=== PATIENT | male | born 1970 | race Caucasian/White ===

== ENCOUNTER 2017-11-05 06:01 | Inpatient (IN) | payer BC, OTHER ==
[2017-10-14 08:11] VITALS: BMI 25.0
--- NOTE | 2017-10-14 09:32 | PAT Medication Instructions ---
Service Date Oct 14, 2017. Current Home Medication List Aspirin (Aspirin Ec), 81 MG PO HS Atorvastatin (Lipitor), 20 MG PO HS Naproxen (Aleve), 220 MG PO DAILY PRN for Pain Terazosin Hcl (Hytrin), 1 MG PO HS Medication Instructions For Your Scheduled Surgery - As per surgeon: Naproxen (Aleve), 220 MG PO DAILY PRN for Pain - Take the following medications as scheduled the night before surgery: Atorvastatin (Lipitor), 20 MG PO HS Terazosin Hcl (Hytrin), 1 MG PO HS Aspirin (Aspirin Ec), 81 MG PO HS *NOTHING TO EAT OR DRINK AFTER MIDNIGHT* If you have any questions please call us at [phone] or [phone] or [phone]
--- NOTE | 2017-10-14 09:59 | DIAGNOSTIC IMAGING REPORT ---
CHEST 2 VIEWS ROUTINE CLINICAL HISTORY: Preoperative evaluation. COMPARISON STUDY: No previous studies for comparison. FINDINGS: Lung volumes are normal. Lungs are clear. No pneumothorax or pleural effusion is noted. There is no evidence for pulmonary edema. Cardiac size is normal. Mediastinal contours are normal. IMPRESSION: No acute cardiopulmonary findings. Electronically signed by: Kiran Motley M.D. 10/14/2017 9:58 AM Dictated Date/Time: 10/14/2017 9:57 AM
[2017-10-14 10:22] LABS: BASO % 0.4 %; BASO ABS # 0.02 K/uL (0-0.2); EOS ABS # 0.05 K/uL (0-0.5); HEMATOCRIT 43.4 % (42-52); HEMOGLOBIN 14.9 g/dL (14.0-18.0); IG# 0.01 K/uL (0.00-0.02); LYMPH % 28.7 %; LYMPH ABS # 1.44 K/uL (1.2-3.4); MEAN CELL VOLUME 89.9 fL (80-100); MEAN CORPUSCULAR HEMOGLOBIN 30.8 pg (25-34); MEAN CORPUSCULAR HGB CONC 34.3 g/dl (32-36); MEAN PLATELET VOLUME 9.3 fL (7.4-10.4); MONO % 7.6 %; MONO ABS # 0.38 K/uL (0.11-0.59); NEUT % 62.1 %; NEUT ABS # 3.12 K/uL (1.4-6.5); PLATELET COUNT 239 K/uL (130-400); RED CELL DISTRIBUTION WIDTH CV 12.6 % (11.5-14.5); RED CELL DISTRIBUTION WIDTH SD 41.5 fL (36.4-46.3); WHITE BLOOD COUNT 5.02 K/uL (4.8-10.8)
[2017-10-14 10:47] LABS: CREATININE 0.96 mg/dl (0.60-1.40); POTASSIUM 4.5 mmol/L (3.5-5.1)
[2017-11-05] VITALS (9 sets, daily range): BP systolic 118–144; BP diastolic 69–88; PULSE 54–79; TEMP 36.3–36.7; O2SAT 94–100; Ht 185.4 cm; Wt 88.6 kg
[~2017-11-05] VITALS: Ht 185.4 cm; Wt 88.6 kg
[~2017-11-05 06:01] MED LIST: ACETAMINOPHEN 500 MG TAB PO SCH; ASPI81TA28 PO; ATOR-22 PO; CEFAZOLIN 2000MG IV PUSH 15 ML IV SCH; CeleBREX 200 MG CAP PO SCH; GABAPENTIN 900 MG PO SCH; LACTATED RINGER'S 1000ML 1,000 ML IV SCH; NAPR1TAB9 PO; TERA1CAP PO
[2017-11-05] MEDS ORDERED: FENTANYL CITRATE INJ 50 MCG/1 ML 2 ML VIAL ONE ×3 (06:37→08:19)
[2017-11-05] MEDS ORDERED: MIDAZOLAM HCL 1 MG/ML 2ML VIAL ONE (06:37)
[2017-11-05] MEDS ORDERED: BUPIVACAINE 0.5 % 5 MG/1 ML PF 10ML VIAL ONE (07:08)
[2017-11-05] MEDS ORDERED: BACITRACIN 50000 UNIT VIAL ONE (07:08)
[2017-11-05] MEDS ORDERED: BUPIVACAINE/EPINEPHRINE 0.5% MPF 1:200,000 30 ML VIAL ONE (07:08)
[2017-11-05] MEDS ORDERED: SODIUM CHLORIDE 0.9% PF 50 ML VIAL ONE (07:08)
[2017-11-05] MEDS ORDERED: BUPIVACAINE LIPOSOME 1/3% 266 MG/20 ML VIAL ONE (07:08)
[2017-11-05] MEDS ORDERED: GELATIN SPONGE SZ 100 ONE (07:09)
[2017-11-05] MEDS ORDERED: THROMBIN FOR SOLN 20000 UNIT KIT ONE (07:09)
[2017-11-05] MEDS ORDERED: ATROPINE SULFATE 0.1 MG/ML 5ML SYR IV PRN (07:15)
[2017-11-05] MEDS ORDERED: FENTANYL CITRATE INJ 50 MCG/1 ML 2 ML VIAL IV PRN (07:15)
[2017-11-05] MEDS ORDERED: MoRPHine SULFATE 10 MG/ML CARP/VIAL IV PRN (07:15)
[2017-11-05] MEDS ORDERED: ONDANSETRON INJ 2 MG/ML 2 ML VIAL IV PRN ×2 (07:15→09:45)
[2017-11-05] MEDS ORDERED: EpHEDrine SULFATE INJ 50 MG/ML AMP IV PRN (07:15)
--- NOTE | 2017-11-05 07:33 | History & Physical Bridge Note ---
H&P Re-Evaluation Bridge Note: I have examined the patient, reviewed the History & Physical and in the interval since the performance of the History & Physical I have noted the following changes of clinical significance: No changes noted
--- NOTE | 2017-11-05 07:35 | History and Physical ---
History & Physical Date Nov 05, 2017. Chief Complaint Back and leg pain History of Present Illness The patient is a 47 year old male with complaints of back and leg pain Additional History Hepatic Disease: No Endocrine Disorder: No Kidney Disease: No Hypertension: Yes Heart Disease: No Bleeding Tendencies: No Infectious Diseases: No Allergies Coded Allergies: No Known Allergies (Unverified , 11/05/17) Home Medications Scheduled Aspirin (Aspirin Ec), 81 MG PO HS Atorvastatin (Lipitor), 20 MG PO HS Terazosin Hcl (Hytrin), 1 MG PO HS Scheduled PRN Naproxen (Aleve), 220 MG PO DAILY PRN for Pain Physical Examination Skin: warm/dry, no rash Eyes: normal inspection, EOMI, sclerae normal ENT: normal ENT inspection, pharynx normal Head: normocephalic, atraumatic Neck: supple, no adenopathy, trachea midline Respiratory/Chest: lungs clear, normal breath sounds, no respiratory distress Cardiovascular: regular rate, rhythm, no edema, no murmur Abdomen / GI: normal bowel sounds, non tender Back: normal inspection Extremities: normal inspection, normal range of motion Neurologic/Psych: no motor/sensory deficits, alert, normal reflexes, oriented x 3 Diagnosis Lumbar spinal stenosis with spondylolisthesis and neurogenic claudication Plan of Treatment L4-5 decompression and fusion
[2017-11-05] MEDS ORDERED: HYDROmorphone INJ 2 MG/ML SYR/VIAL ONE ×2 (08:24→09:33)
[2017-11-05] MEDS ORDERED: LIDOCAINE HCL 2% 2 ML VIAL (20MG/ML) ONE (08:42)
[2017-11-05] MEDS ORDERED: LARYING-O-JET KIT (LTA) ONE (08:42)
[2017-11-05] MEDS ORDERED: DEXAMETHASONE SOD INJ 4 MG/ML VIAL ONE (08:42)
[2017-11-05] MEDS ORDERED: PROPOFOL IV EMULSION 10 MG/ML 20 ML VIAL ONE (08:42)
[2017-11-05] MEDS ORDERED: ONDANSETRON INJ 2 MG/ML 2 ML VIAL ONE ×2 (08:42→09:34)
[2017-11-05] MEDS ORDERED: FLOSEAL HEMOSTATIC MATRIX 10ML TOP ONE (09:15)
--- NOTE | 2017-11-05 09:33 | [facility] Operative Report ---
Operative Report Operative Date Nov 05, 2017. Pre-Operative Diagnosis Lumbar spinal stenosis with spondylolisthesis and neurogenic claudication Post-Operative Diagnosis Lumbar spinal stenosis with spondylolisthesis and neurogenic claudication Procedure(s) Performed 1. Lumbar decompression medial facetectomies foraminotomies L3-4 L4-5. #2 posterior spinal fusion L4-5. #3 placement posterior instrumentation L4-5. #4 interbody fusion L4-5. #5 placement of titanium 12 x 26 mm cage L4-5. #6 basement of local autograft in the posterior lateral gutters per #7 placement InFUSE collagen sponge, Nast graft the posterior gutters and ostial amp in the interbody space. Surgeon Dr. Kath Ontiveros Supervisor [employer] Surgeon(s) Mone Latham PA-C Estimated Blood Loss 200mL Findings Spinal listhesis with severe lateral recess and foraminal stenosis Specimens none per surgeon Anesthesia Type General Description of Procedure Patient was met with preoperatively case discussed all questions addressed. After informed consent obtained patient was taken to the operative suite underwent intubation placed in prone position on the Александр table on top of the Joe frame. All bony prominences were well-padded eyes inspected to ensure no external pressure placed upon. This point the lumbar spine was prepped and draped in the normal sterile fashion. Sharp dissection with the assistance Bovie cautery was performed down to and exposing the lamina transposes L4 and L5 bilaterally. From caudocephalad fashion complete laminectomy of L4 partial laminectomy of L3 is performed addressing severe lateral recess and foraminal disease. Obvious pars defect was noted. After complete decompression pedicle screws were placed in L4 and L5 bilaterally with the assistance of fluoroscopy and the purposes mahesh placed. Through a trans- foraminal approach and right complete discectomy was performed endplates created to subcortical bleeding bone and a 12 x 26 mm titanium cage filled with ostial amp bone graft tapped in position. Rods then compressed locked in final position bilaterally. The transverse processes of L4 and L5 burred to subcortical bleeding bone. Infuse collagen sponge master graft local autograft placed in the posterior gutters. Proximally 100 cc of Exparel injected into the musculature. Inserted. Incision was then closed with 1 Vicryl fascia 2-0 Vicryl substantially 4 Monocryl for fast closure Steri-Strips sterile dressings placed. Patient will continue PACU stable condition. Please note Yasemin Latham was present throughout the entire procedure involved in patient positioning complex portions of the surgery and final skin closure. I attest to the content of the Intraoperative Record and any orders documented therein. Any exceptions are noted below.
[2017-11-05] MEDS ORDERED: KETOROLAC TROMETHAMINE 30 MG/ML VIAL ONE (09:34)
[2017-11-05] MEDS ORDERED: GLYCOPYRROLATE INJ 0.2 MG/ML VIAL ONE (09:34)
[2017-11-05] MEDS ORDERED: EpHEDrine SULFATE 50MG/5ML SYR ONE (09:34)
[2017-11-05] MEDS ORDERED: NEOSTIGMINE METHYLSULFATE 1 MG/ML 10ML VIAL ONE (09:34)
[2017-11-05] MEDS ORDERED: LORAZEPAM 0.5 MG TAB PO PRN (09:45)
[2017-11-05] MEDS ORDERED: DO NOT ADMINISTER FLU VACCINE PRN (09:45)
[2017-11-05] MEDS ORDERED: ACETAMINOPHEN IV 100 ML IV PRN (09:45)
[2017-11-05] MEDS ORDERED: DO NOT ADMINISTER PNEUMOCOCCAL VACCINE PRN (09:45)
[2017-11-05] MEDS ORDERED: LORAZEPAM INJ 0.5 MG in SYRINGE 0 ML IV PRN (09:45)
[2017-11-05] MEDS ORDERED: BISACODYL 10 MG SUPP PR PRN (09:45)
[2017-11-05] MEDS ORDERED: CEFAZOLIN IV 2,000 MG in DEXTROSE 5% 50ML 50 ML IV SCH (09:45)
[2017-11-05] MEDS ORDERED: ACETAMINOPHEN 500 MG TAB PO PRN (09:45)
[2017-11-05] MEDS ORDERED: ALUMINUM/MAGNESIUM SUSP 30 ML UDC PO PRN (09:45)
[2017-11-05] MEDS ORDERED: NALOXONE HCL 0.4 MG/1 ML VIAL/CARP IV PRN (09:45)
[2017-11-05] MEDS ORDERED: METOCLOPRAMIDE HCL INJ 5 MG/ML 2 ML VIAL IV PRN (09:45)
[2017-11-05] MEDS ORDERED: PROMETHAZINE HCL INJ 12.5 MG in SODIUM CHLORIDE 0.9% 50ML 50 ML IV PRN (09:45)
[2017-11-05] MEDS ORDERED: SOD PHOSPHATE/SOD BIPHOSPHATE ENEMA 132 ML BTL PR PRN (09:45)
[2017-11-05] MEDS ORDERED: hydrOXYzine HCL 25 MG TAB PO PRN (09:45)
[2017-11-05] MEDS ORDERED: MAGNESIUM HYDROXIDE SUSP 30 ML UDC PO PRN (09:45)
[2017-11-05] MEDS ORDERED: FAMOTIDINE 20 MG TAB PO PRN (09:45)
[2017-11-05] MEDS ORDERED: KETOROLAC TROMETHAMINE 30 MG/ML VIAL IV PRN (09:45)
--- NOTE | 2017-11-05 09:45 | DIAGNOSTIC IMAGING REPORT ---
LUMBAR SPINE, INTRAOPERATIVE FLUOROSCOPY HISTORY: L4-L5 decompression and fusion. FLUOROSCOPY TIME: 14 seconds. FINDINGS: Intraoperative fluoroscopy was provided for the lumbar spine. 2 fluoroscopic spot images were obtained. Posterior decompression and fusion at L4-5 with pedicle screws and rods. A disc spacer is present. The hardware is intact. IMPRESSION: Fluoroscopy provided for a L4-L5 posterior decompression and fusion. Electronically signed by: Brennan Garces M.D. 11/05/2017 9:43 AM Dictated Date/Time: 11/05/2017 9:43 AM
--- NOTE | 2017-11-05 10:24 | Anesthesiology Progress Note ---
Anesthesia Post Op Note Date & Time Nov 05, 2017 at 10:24 Vital Signs Pain Intensity: 0 Vital Signs Past 12 Hours Date Time Temp Pulse Resp B/P (MAP) Pulse Ox O2 Delivery O2 Flow Rate FiO2 11/05/17 10:20 52 16 134/80 100 Nasal Cannula 4 11/05/17 10:10 57 16 133/87 100 Nasal Cannula 4 11/05/17 10:00 53 16 132/78 100 Oxymask 10 11/05/17 09:51 36.2 61 16 124/70 100 Oxymask 10 11/05/17 06:41 36.5 63 18 132/88 99 Room Air Notes Mental Status: alert / awake / arousable, participated in evaluation Pt Amnestic to Procedure: Yes Nausea / Vomiting: adequately controlled Pain: adequately controlled Airway Patency, RR, SpO2: stable & adequate BP & HR: stable & adequate Hydration State: stable & adequate Anesthetic Complications: no major complications apparent
[2017-11-05] MEDS ORDERED: OXYCODONE HCL IR 5 MG TAB (IMMEDIATE RELEASE) PO PRN (10:45)
[2017-11-05] MEDS ORDERED: HYDROmorphone INJ 0.5 MG/0.5 ML SYR IV PRN (10:45)
[2017-11-05] MEDS ORDERED: ROCURONIUM BROMIDE 10 MG/ML 5 ML VIAL ONE (11:38)
[2017-11-05] MEDS: LACTATED RINGER'S 1000ML 1,000 ML IV SCH ×3 (15:05→23:29)
[2017-11-05] MEDS: CEFAZOLIN IV 2,000 MG in SYRINGE 0 ML IV SCH ×2 (15:44→23:29)
[2017-11-05] MEDS: ATORVASTATIN 20 MG TAB PO SCH (20:52)
[2017-11-05] MEDS: ASPIRIN 81 MG ECTAB PO SCH (20:53)
[2017-11-05] MEDS: DOCUSATE SODIUM/SENNA 50/8.6MG TAB PO SCH (20:53)
[2017-11-06 02:53] VITALS: BP 134/74; PULSE 70; TEMP 36.4; O2SAT 98
[2017-11-06] MEDS ORDERED: OXYCODONE HCL IR 5 MG TAB (IMMEDIATE RELEASE) PO PRN (06:00)
[2017-11-06] MEDS ORDERED: HYDROmorphone INJ 0.5 MG/0.5 ML SYR IV PRN (06:00)
[2017-11-06] MEDS: LACTATED RINGER'S 1000ML 1,000 ML IV SCH (06:04)
[2017-11-06 07:56] VITALS: BP 110/65; PULSE 76; TEMP 36.4; O2SAT 99
[2017-11-06 07:57] LABS: BASO % 0.1 %; BASO ABS # 0.01 K/uL (0-0.2); EOS % 0.1 %; EOS ABS # 0.01 K/uL (0-0.5); HEMATOCRIT 36.9 % (42-52); HEMOGLOBIN 12.3 g/dL (14.0-18.0); IG# 0.04 K/uL (0.00-0.02); LYMPH % 10.1 %; MEAN CELL VOLUME 92.3 fL (80-100); MEAN CORPUSCULAR HEMOGLOBIN 30.8 pg (25-34); MEAN CORPUSCULAR HGB CONC 33.3 g/dl (32-36); MEAN PLATELET VOLUME 9.8 fL (7.4-10.4); MONO % 7.4 %; MONO ABS # 0.96 K/uL (0.11-0.59); PLATELET COUNT 191 K/uL (130-400); RED CELL DISTRIBUTION WIDTH SD 44.1 fL (36.4-46.3); WHITE BLOOD COUNT 12.92 K/uL (4.8-10.8)
[2017-11-06] MEDS ORDERED: RXC5 PO (08:13)
--- NOTE | 2017-11-06 08:14 | Discharge Instructions ---
Discharge Instructions Date of Service Nov 06, 2017. Admission Reason for Admission: Lumbar Spinal Stenosis Discharge Discharge Diagnosis / Problem: lumbar stenosis Discharge Goals Goal(s): Improve function Activity Recommendations Activity Limitations: per Instructions/Follow-up section . Instructions / Follow-Up Instructions / Follow-Up ACTIVITY RECOMMENDATIONS: SELF CARE INSTRUCTIONS AFTER THORACIC/LUMBAR FUSIONS 1. You may walk to your tolerance. It is good exercise for your legs and back. Expect some back and intermittent leg aches and pains. 2. You may perform "counter-top" level activities (make a sandwich, heron with a project, etc.). 3. No bending or lifting of more than 10 pounds or back twisting of any nature (roll like a log when turning in bed). 4. You may ride in a car for 20-30 minutes at a time. No driving until after your first visit with your doctor. 5. Frequent changes of position and restricting sitting to 30 minutes at a time will help limit the amount of back spasms and stiffness you may experience. 6. You may discontinue the use of ambulatory aids (cane, crutches, etc.) once your strength and confidence allow. 7. You may senior market intelligence consultant the shower and let water strike your incision when you arrive home at least once daily. Do not take a tub bath, sit in a hot tub or go into a swimming pool until after your first recheck in the office. SPECIAL CARE INSTRUCTIONS: VERY IMPORTANT TO READ AND REVIEW A. Your surgical incision has been closed with a cosmetic suture under the skin that will dissolve in about 6 weeks. In 14 days, you can use a pair of clean scissors and cut the suture that is left outside of the skin at the ends of your incision. 1. The small skin tapes can be removed 7 days after surgery if they have not fallen off by that point. 2. You may keep the wound open to air as much as possible to promote healing after post-op day number 5 unless told otherwise by your doctor. 3. If you think the wound looks like it is becoming infected (redness or worsening drainage) and/or you are experiencing fever, chill or worsening back pain and muscle spasms, contact the office so that we may evaluate you as soon as possible. B. Complications are uncommon, but please contact us if you have any signs or symptoms of: 1. wound infection (fever higher than 102.5 degrees F, redness, separation of wound, drainage, or increasing pain from the incision) 2. blood clots in legs (pain, swelling, redness and warmth in legs) 3. urinary tract infection (fever higher than 102.5 degrees F, burning upon urination or increased frequency of urination) 4. nerve problems (inability to walk on your toes or heels, numbness, loss of bowel or bladder control) 5. any other symptoms that concern you C. Please call the office at if you have any concerns or questions about your operation or recovery. D. No smoking! Smoking drastically decreases the chance of a solid fusion. E. Do not take any anti-inflammatory medications (Indocin, Advil, Motrin, Aspirin, Naprosyn, etc.) as these may inhibit the chance of a solid fusion. Tylenol is okay to take for pain. MANAGING PAIN AFTER SPINAL SURGERY 1. Narcotic medication is intended for short-term use and will be provided for surgical pain. Surgical pain usually lasts for a period of 4-6 weeks. Narcotic medication includes Percocet, Vicodin, Darvocet, Tylenol #3 or Lortab. 2. Longer-term pain is more appropriately treated with non-narcotic medication such as Tylenol ES. 3. Muscle spasm is not appropriately treated with narcotics. Muscle relaxers such as Soma, Flexeril or Skelaxin can be used along with Tylenol ES. 4. Remember that we all live with some "aches and pains". This is not unusual or uncommon after an injury or as we get older. a. Back pain is expected and may include muscle spasms for 4 to 6 weeks after surgery. The pain should gradually improve. If the pain worsens for no apparent reason, please contact the office. b. Intermittent leg pain may also be experienced and should not be concerned about unless it worsens for no apparent reason. If so, please contact the office. 5. We will provide appropriate medication within the normal guidelines of their prescribed use. We will also be very cautious and aware of potential abuse and extended duration of patients' medication needs. a. Pain medications are for your comfort and to assist with sleep and rest so that the tissue can heal. They are not provided in order to return to normal activity and should not be used through the day. To do so or worsening pain at night can result from ongoing tissue damage and development of tolerance to the prescribed medicine. 6. Please allow 2-3 days to process refills. Prescriptions will not be mailed but must be picked up at the office. FOLLOW UP VISIT: Keep your scheduled follow-up appointment. Any questions, please call the office at . Current Hospital Diet Patient's current hospital diet: Regular Diet Discharge Diet Recommended Diet: Regular Diet Procedures Procedures Performed: 1. Lumbar decompression medial facetectomies foraminotomies L3-4 L4-5. #2 posterior spinal fusion L4-5. #3 placement posterior instrumentation L4-5. #4 interbody fusion L4-5. #5 placement of titanium 12 x 26 mm cage L4-5. #6 basement of local autograft in the posterior lateral gutters per #7 placement InFUSE collagen sponge, Nast graft the posterior gutters and ostial amp in the interbody space. Pending Studies Studies pending at discharge: no Medical Emergencies . Who to Call and When: Medical Emergencies: If at any time you feel your situation is an emergency, please call 911 immediately. . Non-Emergent Contact Non-Emergency issues call your: Primary Care Provider . "Provider Documentation" section prepared by Emery Ontiveros. .
--- NOTE | 2017-11-06 08:19 | Progress Note ---
Progress Note Date of Service Nov 06, 2017. Progress Note Patient's back pain is controlled leg symptoms improved vital signs stable. On exam he is ambulating the halls is good strength testing appears comfortable. Assessment status post lumbar depression fusion. Plan at this time we will monitor his GENTRY output anticipate possible home tomorrow.
[2017-11-06 08:31] LABS: CALCIUM 8.3 mg/dl (8.5-10.1); CREATININE 0.86 mg/dl (0.60-1.40)
[2017-11-06] MEDS ORDERED: NURSING VERBAL MED ORDER ONE (09:15)
[2017-11-06 10:40] VITALS: BP 127/73; PULSE 70; TEMP 36.3; O2SAT 98
[2017-11-06 15:31] VITALS: BP 129/82; PULSE 63; TEMP 36.6; O2SAT 99
[2017-11-06 21:52] VITALS: BP 139/75
[2017-11-06] MEDS: ASPIRIN 81 MG ECTAB PO SCH (21:53)
[2017-11-06] MEDS: ATORVASTATIN 20 MG TAB PO SCH (21:53)
[2017-11-06] MEDS: DOCUSATE SODIUM/SENNA 50/8.6MG TAB PO SCH (21:53)
[2017-11-06 23:23] VITALS: BP 122/73; PULSE 82; TEMP 36.9; O2SAT 98
[2017-11-07] MEDS: POLYETHYLENE (MIRALAX) 17 GM PACK PO SCH ×2 (05:51→10:39)
[2017-11-07 05:59] VITALS: BP 112/73; PULSE 104; TEMP 36.5; O2SAT 96
[2017-11-07 07:11] LABS: EOS % 0.3 %; EOS ABS # 0.03 K/uL (0-0.5); HEMATOCRIT 38.5 % (42-52); HEMOGLOBIN 12.6 g/dL (14.0-18.0); IG# 0.03 K/uL (0.00-0.02); LYMPH % 9.4 %; MEAN CELL VOLUME 92.8 fL (80-100); MEAN CORPUSCULAR HEMOGLOBIN 30.4 pg (25-34); MEAN CORPUSCULAR HGB CONC 32.7 g/dl (32-36); MEAN PLATELET VOLUME 9.5 fL (7.4-10.4); MONO % 8.4 %; NEUT % 81.6 %; NEUT ABS # 7.79 K/uL (1.4-6.5); PLATELET COUNT 163 K/uL (130-400); RED CELL DISTRIBUTION WIDTH CV 13.1 % (11.5-14.5); RED CELL DISTRIBUTION WIDTH SD 44.8 fL (36.4-46.3); WHITE BLOOD COUNT 9.55 K/uL (4.8-10.8)
[2017-11-07 07:26] LABS: HEMOGLOBIN A1C 5.5 % (4.5-5.6)
[2017-11-07 07:52] LABS: CREATININE 0.97 mg/dl (0.60-1.40); POTASSIUM 3.9 mmol/L (3.5-5.1); TOTAL PROTEIN 5.9 gm/dl (6.4-8.2)
[2017-11-07] MEDS ORDERED: LACTATED RINGER'S 1000ML 1,000 ML IV ONE (08:00)
--- NOTE | 2017-11-07 08:16 | INTERNAL MEDICINE CONSULTATION ---
DATE OF CONSULTATION: 11/07/2017 Patient seen on the request of Dr. Ontiveros/Caroline Dawson PA-C for evaluation of transient confusion. HISTORY OF PRESENT ILLNESS: History obtained from patient and records. Medical history significant for hypertension, BPH, arthritis, hyperlipidemia. As per records, the patient underwent elective back surgery 2 days ago. Postop, the patient did well with PT, Had trouble sleeping though. Patient woke up disoriented this morning. Patient currently oriented at baseline. Admits to urinary frequency. No fever, no chills. No chest pain, no shortness of breath, no cough symptoms. No headache symptoms. MEDICAL HISTORY: As above. OPERATIONS: He has had orthopedic procedures. HOME MEDICATIONS: Aspirin, Lipitor, Aleve, Hytrin. Inpatient medications : MiraLAX, Senokot, aspirin, Lipitor, Hytrin, Dilaudid, oxycodone, promethazine, Zofran, Reglan, Ativan, bisacodyl, milk of magnesia, naloxone, Maalox, famotidine, hydroxyzine, diphenhydramine FAMILY HISTORY: There is a family history of heart disease. PERSONAL AND SOCIAL HISTORY: Nonsmoker. 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 REVIEW OF SYSTEMS: As per HPI, all 10 systems reviewed. All other ROS negative. PHYSICAL EXAMINATION: VITAL SIGNS: Blood pressure was noted to be 112/70. Pulse rate 104, later 70. RR 16, T 37 sats 96 on room air. GENERAL: Noted to be pleasant, in no acute distress. SKIN: Pallor, warm. HEENT: Alopecia. Bespectacled. Pale palpebral conjunctiva. No ptosis. Dry mucosa. NECK: Supple, nontender. CHEST: Clear to auscultation. No tenderness. HEART: Regular rate and rhythm, no murmur. ABDOMEN: Soft, nontender. EXTREMITIES: No edema. No tenderness. No gross deformities. NEUROLOGIC: Coherent. No gross focality. LABORATORY DATA 11/06: Hemoglobin was noted to be 12.2, WBC 12 platelets 191. Sodium noted to be 143, potassium 4, BUN 12, creatinine 0.86, glucose 125. EKG as per my interpretation, rate 75, NSR, RBBB, no ischemia. ASSESSMENT : 1. Postoperative confusion transient symptoms currently resolved may be related to disturbance in sleep cycle during hospital stay ro UTI given urinary frequency, history of BPH; electrolyte abnormalities 2. hx back surgery Doing well postop Contemplated discharge today. 3. hypertension, stable. 4. Hyperglycemia rule out DM 5. postop anemia. RECOMMENDATIONS: Check CBC, chemistry, cultures, UA, urine tox. Check hemoglobin A1c Hold sedatives for now. Possible discharge pending lab results and follow-up evaluation today by Dr. Whitmore. Thank you very much for this consultation. ANDRES
[2017-11-07 10:16] VITALS: BP 121/68; PULSE 84; TEMP 36.7; O2SAT 96
[2017-11-07 10:25] VITALS: BP 121/68; PULSE 84; TEMP 36.7; O2SAT 96
--- NOTE | 2017-11-07 10:29 | Progress Note ---
Progress Note Date of Service Nov 07, 2017. Progress Note This is a 47 year old male with a past medical history of HTN, HLD, BPH - presented for an elective lumbar surgery; had some post-op delirium. I saw him in room 310; he's doing well currently. Denies any symptoms, ambulating well, no pain. Eager to go home. Post-Op Delirium - resolved - no sign of infection, labwork/vitals are stable - possibly related to insomnia issues - currently he is awake/alert, oriented x3 - no other issues at this time - okay with plan to d/c home today Continue all home medications.
--- NOTE | 2017-11-07 12:59 | Discharge Summary ---
Orthopedic Discharge Summary Admission Date/Reason Nov 05, 2017 at 09:36 Lumbar Spinal Stenosis. Discharge Date/Disposition Nov 07, 2017 Home Diagnosis Principal Diagnosis: Lumbar spinal stenosis with spondylolisthesis Admission Physical Exam As per Admitting History & Physical. Hospital Course She underwent lumbar depression fusion tolerated as well as taken with orthopedic for postoperative. Postop day #1 he was up and amatory pain controlled he progressed the postop day #2. GENTRY drain decreased appropriately. Subsequently discharged home. Discharge orders and instructions found in the chart for further review. Discharge Instructions Please refer to the electronic Patient Visit Report (Discharge Instructions) for additional information.
--- NOTE | 2017-11-11 15:38 | EDITING REQUIRED CODING QUERY ---
ANEMIA To promote full compliance with coding requirements relating to patient care, physician participation is requested in all cases of general helper uncertainty. Please assist us with the question(s) below: Coding Question(s): The record reflects the following clinical findings: Postoperative anemia is documented in your consult report on 11/07. There are several coding choices for this diagnosis and more specificity is needed for correct code selection. Please indicate the type of anemia this patient had: ( x) Acute blood loss anemia ( x) Acute postoperative anemia due to dilutional fluids ( ) Chronic blood loss anemia ( ) Iron deficient anemia due to blood loss ( ) Iron deficiency anemia ( ) Anemia, unspecified or other ( ) Other: (please specify) ( ) Unable to determine Thank you for your time, AFSANEH Stevenson, RUBBER PRESS OPERATOR
== END 2017-11-07 13:40 | disposition home or self-care (01) | DRG 454 ==
LOC: C.ACU 06:01 → C.3E 09:36 → ENRESERV 10:09
PROVIDERS: ADMIT Orthopaedic Surgery Orthopaedic Surgery of the Spine; ATTEND Orthopaedic Surgery Orthopaedic Surgery of the Spine
PROC: 0ST20ZZ Resection of Lumbar Vertebral Disc, Open Approach (ICD-10-PCS; principal; 2017-11-05 07:45)
PROC: 0SG0071 Fusion of Lumbar Vertebral Joint with Autologous Tissue Substitute, Posterior Approach, Posterior Column, Open Approach (ICD-10-PCS; principal; 2017-11-05 07:45)
PROC: 3E0U0GB Introduction of Recombinant Bone Morphogenetic Protein into Joints, Open Approach (ICD-10-PCS; principal; 2017-11-05 07:45)
PROC: 01NB0ZZ Release Lumbar Nerve, Open Approach (ICD-10-PCS; principal; 2017-11-05 07:45)
PROC: 0SG00AJ Fusion of Lumbar Vertebral Joint with Interbody Fusion Device, Posterior Approach, Anterior Column, Open Approach (ICD-10-PCS; principal; 2017-11-05 07:45)
DX: M48.062 Spinal stenosis, lumbar region with neurogenic claudication (principal); D62 Acute posthemorrhagic anemia; M43.16 Spondylolisthesis, lumbar region; R41.0 Disorientation, unspecified; R73.9 Hyperglycemia, unspecified; G47.00 Insomnia, unspecified; I10 Essential (primary) hypertension; E78.5 Hyperlipidemia, unspecified; N40.0 Benign prostatic hyperplasia without lower urinary tract symptoms; M19.90 Unspecified osteoarthritis, unspecified site; Z79.82 Long term (current) use of aspirin; Z79.899 Other long term (current) drug therapy